=== PATIENT | male | born 1960 | race Caucasian/White ===

== ENCOUNTER 2016-11-06 09:25 | Day surgery (SDC) | payer BC ==
--- NOTE | ~2016-11-06 | EGD ---
EGD REPORT [facility] [address] [place]. [address] NAME: JUSTYNA REYES : 56 STATUS : REG [facility] PAT#: [id number] AGE: 56 ADM/REG DATE : 11/06/16 MR#: [id number] REPORT SERV DATE: 11/06/16 DICTATED BY: HENRY LUNA DATE: 11/06/16 REPORT STATUS : Draft TRANSCRIBED BY: [facility] DATE: 11/06/16 Endoscopy Center Patient Name: Justyna Reyes Date of : 1960 Attending MD: DIANE LUNA MD Procedure Date No Time: 11/06/2016 Procedure: Upper GI endoscopy Indications: Gastro-esophageal reflux disease Referring MD: JAMES YOUNG Medicines: See the Anesthesia note for documentation of the administered medications Complications: No immediate complications. Estimated blood loss: None. Procedure: Pre-Anesthesia Assessment: - ASA Grade Assessment: II - A patient with mild systemic disease. - Prior to the procedure, a History and Physical was performed, and patient medications and allergies were reviewed. The patient's tolerance of previous anesthesia was also reviewed. The risks and benefits of the procedure and the sedation options and risks were discussed with the patient. All questions were answered, and informed consent was obtained. Prior Anticoagulants: The patient has taken aspirin, last dose was 3 days prior to procedure. After reviewing the risks and benefits, the patient was deemed in satisfactory condition to undergo the procedure. After obtaining informed consent, the endoscope was passed under direct vision. Throughout the procedure, the patient's blood pressure, pulse, and oxygen saturations were monitored continuously. The GIF H190 [id number] was introduced through the mouth, and advanced to the second part of duodenum. The upper GI endoscopy was accomplished without difficulty. The patient tolerated the procedure well. Findings: The examined duodenum was normal. Diffuse moderate inflammation characterized by congestion (edema) and erythema was found in the gastric antrum. Biopsies were taken with a cold forceps for histology. No other significant abnormalities were identified in a careful examination of the stomach. The cardia and gastric fundus were normal on retroflexion. Abnormal motility was noted in the esophagus. Tertiary peristaltic waves are noted. EGD REPORT [address] [address] NAME: JUSTYNA REYES : [birth year] STATUS : REG [facility] PAT#: [id number] AGE: 56 ADM/REG DATE : 11/06/16 MR#: [id number] REPORT SERV DATE: 11/06/16 DICTATED BY: HENRY ULNA DATE: 11/06/16 REPORT STATUS : Draft TRANSCRIBED BY: [facility] DATE: 11/06/16 No other significant abnormalities were identified in a careful examination of the esophagus. Impression: - Normal examined duodenum. - Gastritis. Biopsied. - Esophageal motility disorder. Recommendation: - Patient has a contact number available for emergencies. The signs and symptoms of potential delayed complications were discussed with the patient. Return to normal activities tomorrow. Written discharge instructions were provided to the patient. - Regular diet. - Discharge patient to home. - Continue present medications. - Await pathology results. 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 All rights reserved. The codes documented in this report are preliminary and upon entry level sales consultant review may be revised to meet current compliance requirements. DIANE LUNA MD 11/06/2016 9:23 AM This report has been signed electronically. Number of Addenda: 0 Note Initiated On: 11/06/2016 9:12 AM Scope Withdrawal Time 0 hours 0 minutes 0 seconds [address] [place] [address]
--- NOTE | ~2016-11-06 | EGD ---
EGD REPORT [facility] [address] [place]. [address] NAME: JUSTYNA REYES : [birth year] STATUS : REG [facility] PAT#: [id number] AGE: 56 ADM/REG DATE : 11/06/16 MR#: [id number] REPORT SERV DATE: 11/06/16 DICTATED BY: HENRY LUNA DATE: 11/06/16 REPORT STATUS : Draft [facility]ANSCRIBED BY: [facility] DATE: 11/06/16 Endoscopy Center Patient Name: Justyna Reyes Date of : 1960 Attending MD: DIANE LUNA MD Procedure Date No Time: 11/06/2016 Procedure: Colonoscopy Indications: Screening for colorectal malignant neoplasm, This is the patient's first colonoscopy Referring MD: JAMES YOUNG Medicines: See the Anesthesia note for documentation of the administered medications Complications: No immediate complications. Estimated blood loss: None. Procedure: Pre-Anesthesia Assessment: - ASA Grade Assessment: II - A patient with mild systemic disease. - Prior to the procedure, a History and Physical was performed, and patient medications and allergies were reviewed. The patient's tolerance of previous anesthesia was also reviewed. The risks and benefits of the procedure and the sedation options and risks were discussed with the patient. All questions were answered, and informed consent was obtained. Prior Anticoagulants: The patient has taken aspirin, last dose was 3 days prior to procedure. After reviewing the risks and benefits, the patient was deemed in satisfactory condition to undergo the procedure. After I obtained informed consent, the scope was passed under direct vision. Throughout the procedure, the patient's blood pressure, pulse, and oxygen saturations were monitored continuously. The PCF [id number] was introduced through the anus and advanced to the cecum, identified by appendiceal orifice and ileocecal valve. The ileocecal valve, appendiceal orifice and rectum were photographed. The entire colon was examined. The colonoscopy was performed without difficulty. The patient tolerated the procedure well. The quality of the bowel preparation was adequate. Findings: The perianal and digital rectal examinations were normal. A few small-mouthed diverticula were found in the sigmoid colon and in the descending colon. Non-bleeding internal hemorrhoids were found during retroflexion and were Grade I (internal hemorrhoids that do not prolapse). EGD REPORT [place] [id number] [facility] [place]. [address] NAME: JUSTYNA REYES : [birth year] STATUS : REG [facility]#: [id number] AGE: 56 ADM/REG DATE : 11/06/16 MR#: [id number] REPORT SERV DATE: 11/06/16 DICTATED BY: HENRY LUNA DATE: 11/06/16 REPORT STATUS : Draft TRANSCRIBED BY: [facility] DATE: 11/06/16 No other significant abnormalities were identified in a careful examination of the remainder of the colon. Impression: - Diverticulosis in the sigmoid colon and in the descending colon. - Non-bleeding internal hemorrhoids. Recommendation: - Patient has a contact number available for emergencies. The signs and symptoms of potential delayed complications were discussed with the patient. Return to normal activities tomorrow. Written discharge instructions were provided to the patient. - High fiber diet indefinitely. - Discharge patient to home. - Continue present medications. - Repeat colonoscopy in 10 years for surveillance. Procedure Code(s): --- Professional --- 75190, Colonoscopy, flexible, proximal to splenic flexure; diagnostic, with or without collection of specimen(s) by brushing or washing, with or without colon decompression (separate procedure) Diagnosis Code(s): --- Professional --- K64.0, First degree hemorrhoids K57.30, Diverticulosis of large intestine without perforation or abscess without bleeding Z12.11, Encounter for screening for malignant neoplasm of colon CPT copyright 2013 [employer]. All rights reserved. The codes documented in this report are preliminary and upon paint formulator review may be revised to meet current compliance requirements. DIANE LUNA MD 11/06/2016 9:46 AM This report has been signed electronically. Number of Addenda: 0 Note Initiated On: 11/06/2016 9:05 AM Scope Withdrawal Time 0 hours 9 minutes 43 seconds [address] [place] [address] [address]
[~2016-11-06 09:25] MED LIST: ASA5GR PO; CRESTOR5 MG PO; LOP25 PO; PRIN5 PO
[2017-01-06] MEDS ORDERED: CRESTOR10 PO (14:17)
[2017-01-06] MEDS ORDERED: MULTIPLE VIT PO (14:18)
[2017-01-06] MEDS ORDERED: CO Q-10100 MG PO (14:19)
[2017-01-07] MEDS ORDERED: ASAB PO (10:02)
== END 2016-11-06 23:59 | disposition home or self-care (01) ==
LOC: DMU 09:25
PROVIDERS: Internal Medicine Gastroenterology
PROC: 0DB68ZX Excision of Stomach, Via Natural or Artificial Opening Endoscopic, Diagnostic (ICD-10-PCS; principal; 2016-11-06 09:30)
PROC: 0DJD8ZZ Inspection of Lower Intestinal Tract, Via Natural or Artificial Opening Endoscopic (ICD-10-PCS; 2016-11-06 09:30)
DX: Z12.11 Encounter for screening for malignant neoplasm of colon (principal); K29.50 Unspecified chronic gastritis without bleeding; K22.4 Dyskinesia of esophagus; K21.9 Gastro-esophageal reflux disease without esophagitis; K64.0 First degree hemorrhoids; K57.30 Diverticulosis of large intestine without perforation or abscess without bleeding; I25.10 Atherosclerotic heart disease of native coronary artery without angina pectoris; E78.00 Pure hypercholesterolemia, unspecified; M19.90 Unspecified osteoarthritis, unspecified site; I10 Essential (primary) hypertension; Z88.5 Allergy status to narcotic agent; Z79.82 Long term (current) use of aspirin; Z79.899 Other long term (current) drug therapy; Z98.890 Other specified postprocedural states
CPT/HCPCS: 88305